=== PATIENT | male | born 1975 | race African-American/Black ===

== ENCOUNTER 2020-11-07 15:00 | Observation (INO) ==
[2020-11-07] MEDS ORDERED: TEMAZEPAM 15 MG CAPSULE PO PRN (16:21)
[2020-11-07] MEDS ORDERED: ONDANSETRON 4 MG/2 ML VIAL IV PRN (16:21)
[2020-11-07] MEDS ORDERED: MAGNESIUM HYDROXIDE SUSP 30 ML UDCUP PO PRN (16:21)
[2020-11-07] MEDS: HYDROmorphone 2 MG/1 ML VIAL IV PRN (18:02)
[2020-11-07 18:14] LABS: Basophils % 0.4 % (0.0-0.8); Eosinophils % 0.2 % (0.00-10.9); Hematocrit 42.5 VOL% (42.0-52.0); Immature Granulocytes % 0.2 %; Immature Granulocytes Absolute 0.02 #; Lymphocytes # 2.2 10*3/uL (1.4-4.0); Lymphocytes % 25.9 % (21.2-54.2); Mean Corpuscular HGB Conc 35.3 GM/DL (32-36); Mean Corpuscular Volume 89.3 FL (87-102); Mean Platelet Volume 9.3 FL (9.6-12.0); Monocytes % 7.6 % (1.7-12.7); Neutrophils % 65.7 % (38.7-73.9); Platelet Count 158 T/CUMM (130-400); Red Blood Count 4.76 MC/CUMM (3.8-5.5); White Blood Count 8.5 T/CUMM (4-12)
[2020-11-07 18:33] LABS: Albumin 3.6 G/DL (3.4-5.0); Bilirubin,Total 0.9 MG/DL (0.2-1.0); Calcium 9.1 MG/DL (8.5-10.1); Potassium 3.9 MMOL/L (3.5-5.1); Total Protein 8.1 G/DL (6.4-8.2)
[2020-11-07] MEDS: DEXTROSE 5% NACL 0.45% 1,000 ML IV SCH (18:39)
[2020-11-07 18:48] LABS: Barbiturates Screen,Urine Negative (Negative); Benzodiazepines Screen,Urine Negative (Negative); Cannabinoid Screen,Urine Negative (Negative); Opiate Screen,Urine Positive (Negative); Phencyclidine Screen,Urine Negative (Negative)
[2020-11-08] MEDS: DEXTROSE 5% NACL 0.45% 1,000 ML IV SCH ×2 (04:18→16:12)
[2020-11-08] MEDS: HYDROmorphone 2 MG/1 ML VIAL IV PRN ×6 (04:18→21:40)
[2020-11-08] MEDS ORDERED: MIDAZOLAM 2 MG/2 ML VIAL ONE (12:23)
[2020-11-08] MEDS ORDERED: fentaNYL 100 MCG/2 ML VIAL ONE (12:24)
[2020-11-08] MEDS ORDERED: LACTATED RINGERS 1,000 ML IV SCH ×2 (12:30→14:30)
[2020-11-08] MEDS ORDERED: ONDANSETRON 4 MG/2 ML VIAL ONE (12:39)
[2020-11-08] MEDS ORDERED: propofoL 200 MG/20 ML VIAL IV ONE (12:39)
[2020-11-08] MEDS ORDERED: LIDOCAINE 2% 5 ML VIAL ONE (12:39)
[2020-11-08] MEDS ORDERED: SUCCINYLCHOLINE 200 MG/10 ML VIAL ONE (12:39)
[2020-11-08] MEDS ORDERED: ACETAMINOPHEN INJ 1,000 MG/100 ML VIAL IV ONE (13:00)
[2020-11-08] MEDS ORDERED: ceFAZolin 1,000 MG VIAL ONE (13:01)
[2020-11-08] MEDS ORDERED: BACITRACIN OINT 0.9 GM PACK TOP ONE (13:19)
[2020-11-08] MEDS ORDERED: SEVOFLURANE 1 UNIT/15 MINUTE INH ONE (13:47)
[2020-11-08] MEDS ORDERED: KETOROLAC 30 MG/1 ML VIAL IV PRN (13:49)
[2020-11-08] MEDS ORDERED: MAGNESIUM HYDROXIDE SUSP 30 ML UDCUP PO PRN (13:49)
[2020-11-08] MEDS ORDERED: ONDANSETRON 4 MG/2 ML VIAL IV PRN (14:11)
[2020-11-08] MEDS ORDERED: hydrALAZINE 20 MG/1 ML VIAL ONE (14:36)
[2020-11-08] MEDS ORDERED: hydrALAZINE 20 MG/1 ML VIAL IV ONE (14:37)
[2020-11-09] MEDS: HYDROmorphone 2 MG/1 ML VIAL IV PRN (01:32)
[2020-11-09 06:54] VITALS: BP 137/85
[2020-11-09] MEDS ORDERED: FONDAPARINUX 2.5 MG/0.5 ML SYRINGE SUBCUT SCH (08:00)
== END 2020-11-09 10:33 | disposition home or self-care (01) ==
LOC: N.ED 15:00 → N.EDINP 15:00 → N.3E 18:17
PROVIDERS: ADMIT Orthopaedic Surgery; ATTEND Orthopaedic Surgery